=== PATIENT | male | born 1970 | race Caucasian/White ===

== ENCOUNTER 2023-07-21 10:51 | Emergency (ER) | payer BC, SELFPAY ==
--- NOTE | ~2023-07-21 | XR_ITS ---
EXAMINATION: XR chest 1V portable 07/21/2023 11:12 INDICATION: Abnormal EKG PROCEDURE: AP portable chest COMPARISON: No prior studies for comparison. FINDINGS: The lungs are clear. The cardiomediastinal silhouette is within normal limits. There are no pleural effusions. There is no pneumothorax suspected. IMPRESSION: 1: NO ACUTE CARDIOPULMONARY DISEASE. Reviewed, dictated and finalized at location A. [facility]
--- NOTE | 2023-07-21 10:54 | ECG_ITS ---
Measurements Intervals [place] Rate: 95 P: 61 OH: 173 QRS: 37 QRSD: 86 T: 38 QT: 308 QTc: 388 Interpretive Statements SINUS RHYTHM MINIMAL Q WAVES- INF/LAT LEADS BORDERLINE ECG NO PREVIOUS ECG AVAILABLE FOR COMPARISON Electronically Signed On 07-21-2023 11:32:57 [facility] by Raffaele Hwang D.O.
[2023-07-21 10:56] VITALS: BP 151/98; PULSE 90; TEMP 36.2; O2SAT 99
[2023-07-21 11:14] LABS: Basophils Percent Auto 0.4 % (0.2-1.2); Eosinophils Percent Auto 0.1 % (0-4.4); Hematocrit 47.1 % (42.0-52.0); Hemoglobin 15.8 g/dL (14.0-18.0); Immature Granulocyte Absolute 0.02 K/mm3 (0.00-0.031); Immature Granulocyte Percent A 0.2 % (0-0.5); Lymphocytes Absolute Auto 2.44 K/mm3 (0.9-3.2); Lymphocytes Percent Auto 27.4 % (18.3-44.2); Mean Corpuscular HGB Conc 33.5 g/dl (32-36); Mean Corpuscular Hemoglobin 29.5 pg (26-34); Mean Platelet Volume 9.1 fl (7.4-10.4); Monocytes Absolute Auto 0.8 K/mm3 (0.1-0.6); Monocytes Percent Auto 9.1 % (2.6-8.5); Neutrophils Absolute Auto 5.6 K/mm3 (1.3-6.7); Neutrophils Percent Auto 62.8 % (45.5-73.1); Platelet Count Result 414 k/mm3 (150-375); Red Blood Count 5.35 M/mm3 (4.6-6.20); Red Cell Distribution Width 12.4 % (11.5-14.5); White Blood Count 8.9 K/mm3 (4.5-10.0)
[2023-07-21] MEDS: Please add drug allergy info to patient profile. 1 EACH XX (11:16)
[2023-07-21 11:17] VITALS: RESP 13; O2SAT 98
[2023-07-21 11:25] LABS: Partial Thromboplastin Time 52.4 SECONDS (22.3-36.8); Prothrombin Time 13.8 Seconds (11.1-14.7)
[2023-07-21 11:27] LABS: Alanine Aminotransferase 56 U/L (6-50); Albumin Level 5.2 g/dL (3.5-5.1); Alkaline Phosphatase 54 U/L (38-126); Anion Gap 11 mmol/L (8-16); Aspartate Amino Transferase 39 U/L (17-59); Blood Urea Nitrogen 16 mg/dL (9-20); Calcium 9.7 mg/dL (8.4-10.2); Carbon Dioxide 23 mmol/L (22-30); Chloride 104 mmol/L (98-107); Estimated CRCL calculation 132 ml/min; Estimated Glomerular Filt Rate > 60; Glucose 115 mg/dL (65-110); Lipase 127 U/L (23-300); Potassium 4.8 mmol/L (3.4-5.0); Sodium 138 mmol/L (137-145)
--- NOTE | 2023-07-21 11:31 | ED.RECABL ---
HPI - Recheck/Abnormal Lab/Rx General Chief Complaint: Recheck/Abnormal Lab/Rx Stated Complaint: abn ekg Time Seen by Provider: 07/21/23 11:15 History of Present Illness HPI narrative: 53-year-old male with no known prior medical history reports for evaluation for lightheadedness and night sweats. Patient states a week ago, he had an episode of night sweats the middle the night. States he woke up and his pillow was drenched, he has happened is better felt lightheaded for a few seconds and then it resolved. States the remainder of the day he felt normal. Patient states the same thing happened last night where he sat up in his bed, his pillow with soaking wet with sweat, he sat up and felt lightheaded, symptoms resolved he went back to bed. States he is currently asymptomatic. He was sent here from a local urgent care for an abnormal EKG. Patient denies chest pain or shortness of breath with these episodes, palpitations, cough or congestion, abdominal pain, nausea, vomiting, diarrhea, unintentional weight loss, history of cancer, or family history of cancer, Fever, Vision changes, focal numbness or weakness, lower extremity edema. Patient does state he does not feel like he has been drinking enough fluids and states his mouth feels dry. He is currently asymptomatic. Related Data Allergies Allergy/AdvReac Type Severity Reaction Status Date / Time No Known Allergies Allergy Verified 07/21/23 11:15 Review of Systems Review of Systems: CONSTITUTIONAL: Denies fever, chills, or sweats. EYES: Denies visual changes, redness, or discharge. ENT: Denies rhinorrhea, congestion, sore throat, or otalgia. CARDIOVASCULAR: Denies chest pain, palpitations, or edema. RESPIRATORY: Denies cough or dyspnea. GASTROINTESTINAL: Denies abdominal pain, nausea, vomiting, or diarrhea. GENITOURINARY: Denies dysuria or hematuria. SKIN: Denies rash or itching. MUSCULOSKELETAL: Denies back pain, joint pain, or myalgia. NEUROLOGIC: Denies headache, numbness, or weakness. PSYCHIATRIC: Denies anxiety or depression. Exam Narrative: GENERAL: Well-appearing, well-nourished, and in no acute distress. Patient resting comfortably in exam bed. He is pleasant and conversational. HEAD: Normocephalic, atraumatic. EYES: PERRLA and EOMI. ENT: Nares clear, no rhinorrhea or epistaxis. Mucous membranes moist. NECK: Supple. CHEST: Clear to auscultation. No respiratory distress. HEART: Regular rate and rhythm. No murmur heard. Normal peripheral pulses. ABDOMEN: Soft, nontender, nondistended, normal active bowel sounds. EXTREMITIES: Normal range of motion. No edema. SKIN: Warm, dry, no rash. NEURO: No focal deficits. Alert and oriented x3. Cranial nerves 2-12 intact. Strength 5/5 in BUE and BLE. Sensation intact throughout. Normal [id number]. No pronator drift. Course Vital Signs Vital signs: Vital Signs Temperature 97.2 F L 07/21/23 10:56 Pulse Rate 90 07/21/23 10:56 Blood Pressure 151/98 H 07/21/23 10:56 Pulse Oximetry 99 07/21/23 10:56 Temperature 97.2 F L 07/21/23 10:56 Pulse Rate 90 07/21/23 10:56 Respiratory Rate 13 07/21/23 11:17 Blood Pressure 151/98 H 07/21/23 10:56 Pulse Oximetry 98 07/21/23 11:17 MDM - Recheck/Abnormal Lab/Rx MDM Narrative Medical decision making narrative: 53-year-old male reports for evaluation for 2 episodes of night sweats and lightheadedness in the past 2 weeks. See HPI for further history. Triage vital significant for elevated blood pressure 151/98, otherwise unremarkable. Patient is well-appearing on exam currently asymptomatic. Cbc without leukocytosis or anemia. Chemistries show mild elevation in ALT, remainder of LFTs are unremarkable. Lipase normal. No abdominal pain or tenderness. He does appear to be slightly hemoconcentrated with a total protein of 9 and albumin of 5.2. Chest x-ray shows no acute cardiopulmonary abnormality. EKG shows sinus rhythm, there is m
[2023-07-21 11:36] LABS: Troponin I < 0.012 ng/mL (0.000-0.034)
[2023-07-21] MEDS: SODIUM CHLORIDE 0.9% IV 1,000 ML 999 ML IV CONT (12:35)
[2023-07-21 13:50] VITALS: BP 129/76; PULSE 77; RESP 17; O2SAT 97
== END 2023-07-21 13:51 | disposition home or self-care (01) ==
PROVIDERS: Emergency Medicine; Emergency Provider Physician Assistant
DX: R42 Dizziness and giddiness (principal); E86.0 Dehydration
CPT/HCPCS: 36415; 71045; 80053; 83690; 84484; 85025; 85610; 85730; 93005; 96360; 99284; J7030